=== PATIENT | male | born 1935 | race Caucasian/White ===

== ENCOUNTER → 2018-12-17 14:18 | Outpatient (CLI) | payer MEDICARE, OTHER, SELFPAY ==
--- NOTE | 2018-12-19 09:38 | PM.PFT.1 ---
Pulmonary Function Test Referral & Results Date Patient Seen: 12/17/18 Requesting provider: Tabitha Harley Results: The spirometry demonstrates an FVC of 3.04 L which is 73% of predicted. The FEV1 was measured at 1.41 L which is 47% of predicted. The FEV1/FVC ratio was 46 which is 65% of predicted. Following the administration of bronchodilator there was no significant change. Lung volumes show an SVC of 3.25 L which is 71% of predicted. The diffusing capacity was measured at 9.57 which is 28% of predicted. The maximum voluntary ventilation was reduced Interpretation: This study demonstrates moderately severe obstructive lung disease without evidence of significant benefit following bronchodilator Based on reduction in lung volumes there is also [id number] restrictive lung disease present There is a severe reduction in diffusing capacity to the point where patients likely hypoxic at times on room air. This suggests significant disease at the capillary alveolar level Clinical correlation suggested
== END ==
PROVIDERS: PCP Family Medicine; Visit Provider Internal Medicine Critical Care Medicine
DX: R06.09 Other forms of dyspnea (principal)
CPT/HCPCS: 94060; 94726; 94729